=== PATIENT | female | born 1990 | race Two or more races ===

== ENCOUNTER 2017-08-17 15:56 | Inpatient (IN) | payer MEDICAID ==
[~2017-08-17] VITALS: Ht 165.1 cm; Wt 47.6 kg
[2017-08-17 16:10] VITALS: BP 83/60
[2017-08-17 17:00] VITALS: BP 96/73
--- NOTE | 2017-08-17 17:17 | Emergency Room Report ---
History of Present Illness General Chief Complaint: Abnormal Labs Source: Patient Present Illness HPI Patient has a history of diabetes. Patient has insulin-dependent diabetes. Patient states that she was doing fine today. She went to lunch and subsequently began having nausea vomiting and diarrhea. She fell her sugar go low and she became very weak. EMS arrived and checked her sugar and noted that her sugar was in the 60s. Patient denies any fever. She denies any chest pain or shortness of breath. Patient was given one amp of D50 and symptoms improved significantly. Patient came here for further evaluation by EMS. On arrival patient sugar was about 200. Patient states that she feels better now but is a little nauseous. No other complaints are noted. Symptoms noted to be moderate to severe. In addition patient also has a history of celiac disease. She is recently delivered a healthy baby as well.No other modifying factors. No other associated signs and symptoms. No other complaints were noted. Allergies: Coded Allergies: No Known Allergies (Unverified , 08/17/17) Patient History Past Medical History: DM, other - celiac disease Past Surgical History: none Pertinent Family History: none Social History: Denies: smoking, alcohol use, drug use Reviewed Nursing Documentation: PMH: Agreed, PSxH: Agreed Nursing Documentation-PMH Past Medical History: No History, Except For Hx Diabetes: Yes Review of Systems All Other Systems: negative except mentioned in HPI Physical Exam Vital Signs Date Time Temp Pulse Resp B/P (MAP) Pulse Ox O2 Delivery O2 Flow Rate FiO2 08/17/17 15:51 98.2 66 19 83/65 96 Room Air Sp02 EP Interpretation: reviewed, normal General Appearance: normal inspection, alert, mild distress - weak Head: atraumatic Eyes: bilateral eye normal inspection ENT: normal ENT inspection, hearing grossly normal, normal voice Neck: normal inspection, full range of motion, supple, no bony tend Respiratory: normal inspection, lungs clear, normal breath sounds, no respiratory distress, no retraction, no wheezing Cardiovascular #1: regular rate, rhythm, no edema Gastrointestinal: normal inspection, normal bowel sounds, non tender, soft, no guarding, no hernia Genitourinary: no CVA tenderness Musculoskeletal: normal inspection, back normal, normal range of motion Neurologic: normal inspection, alert, responsive, speech normal Psychiatric: normal inspection, judgement/insight normal, mood/affect normal Skin: normal inspection, normal color, no rash Medical Decision Making Diagnostic Impression: Primary Impression: Pancreatitis Additional Impressions: Hypokalemia Hypoglycemia UTI (urinary tract infection) ER Course Patient presents emergency department today complaining of abdominal pain. Differential considerations include gastritis, pancreatitis, gastroenteritis, appendicitis just to name a few. Patient has a very complicated history including colitis and celiac disease. Patient also takes immunosuppressants. Patient currently is breast-feeding as well.Given the severity of the patient's presentation I felt this is a highly complex patient. This patient required extensive workup. Patient was noted to be hypoglycemic received one dose of glucose prior to arrival. Patient glucose has been stable while she is here. Patient was given fluids. Patient laboratory workup shows evidence of pancreatitis. Patient's CAT scan however was negative for appendicitis. Patient was given potassium to improve her hypokalemia which was noted on blood tests. Given patient's presentation patient require admission. Case was discussed with Dr. Tony Ricketts. Patient will be admitted to telemetry for further treatment. Labs Test 08/17/17 16:45 08/17/17 18:24 08/17/17 18:25 White Blood Count 20.3 K/UL (4.8-10.8) Red Blood Count 6.67 M/UL (4.20-5.40) Hemoglobin 18.9 G/DL (12.0-16.0) Hematocrit 58.5 % (37.0-47.0) Mean Corpuscular Volume 88 FL (80-99) Mean Corpuscular Hemoglobin 28.3 PG (27.0-31.0) Mean Corpuscular Hemoglobin Concent 32.3 G/DL (32.0-36.0) Red Cell Distribution Width 12.7 % (11.6-14.8) Platelet Count 417 K/UL (150-450) Mean Platelet Volume 5.6 FL (6.5-10.1) Neutrophils (%) (Auto) 83.0 % (45.0-75.0) Lymphocytes (%) (Auto) 9.1 % (20.0-45.0) Monocytes (%) (Auto) 5.4 % (1.0-10.0) Eosinophils (%) (Auto) 1.5 % (0.0-3.0) Basophils (%) (Auto) 1.0 % (0.0-2.0) Urine Color Yellow Urine Appearance Very cloudy Urine pH 6 (4.5-8.0) Urine Specific [place] 1.015 (1.005-1.035) Urine Protein 3+ (NEGATIVE) Urine Glucose (UA) Negative (NEGATIVE) Urine Ketones 1+ (NEGATIVE) Urine Occult Blood 4+ (NEGATIVE) Urine Nitrite Positive (NEGATIVE) Urine Bilirubin Negative (NEGATIVE) Urine Urobilinogen Normal MG/DL (0.0-1.0) Urine Leukocyte Esterase 3+ (NEGATIVE) Urine RBC 0-2 /HPF (0 - 2) Urine WBC Tntc /HPF (0 - 2) Urine Squamous Epithelial Cells Many /LPF (NONE/OCC) Urine Bacteria Many /HPF (NONE) Urine HCG, Qualitative Negative Prothrombin Time 11.2 SEC (9.30-11.50) Prothromb Time International Ratio 1.1 (0.9-1.1) Activated Partial Thromboplast Time 28 SEC (23-33) Sodium Level 138 MMOL/L (136-145) Potassium Level 2.2 MMOL/L (3.5-5.1) Chloride Level 98 MMOL/L (98-107) Carbon Dioxide Level 23 MMOL/L (21-32) Anion Gap 18 mmol/L (5-15) Blood Urea Nitrogen 23 mg/dL (7-18) Creatinine 1.0 MG/DL (0.55-1.30) Estimat Glomerular Filtration Rate > 60 mL/min (>60) Glucose Level 205 MG/DL (74-106) Calcium Level 9.5 MG/DL (8.5-10.1) Total Bilirubin 1.4 MG/DL (0.2-1.0) Direct Bilirubin 0.2 MG/DL (0.0-0.3) Aspartate Amino Transf (AST/SGOT) 31 U/L (15-37) Alanine Aminotransferase (ALT/SGPT) 48 U/L (12-78) Alkaline Phosphatase 131 U/L (46-116) Total Protein 8.3 G/DL (6.4-8.2) Albumin 3.7 G/DL (3.4-5.0) Globulin 4.6 g/dL Albumin/Globulin Ratio 0.8 (1.0-2.7) Lipase 3201 U/L (73-393) Rhythm Strip Diag. Results EP Interpretation: yes Rate: 90s Rhythm: NSR, no PVC's, no ectopy Last Vital Signs Date Time Temp Pulse Resp B/P (MAP) Pulse Ox O2 Delivery O2 Flow Rate FiO2 08/17/17 15:51 98.2 66 19 83/65 96 Room Air Status: improved Disposition: ADMITTED INPATIENT Condition: Serious JUDY DANIELS M.D. Aug 17, 2017 17:17
[2017-08-17 17:36] LABS: MEAN CORPUSCULAR HEMOGLOBIN 28.3 PG (27.0-31.0); MEAN CORPUSCULAR HGB CONC 32.3 G/DL (32.0-36.0); MEAN CORPUSCULAR VOLUME 88 FL (80-99); MEAN PLATELET VOLUME 5.6 FL (6.5-10.1); PLATELET COUNT 417 K/UL (150-450); RED BLOOD COUNT 6.67 M/UL (4.20-5.40); RED CELL DISTRIBUTION WIDTH 12.7 % (11.6-14.8); WHITE BLOOD COUNT 20.3 K/UL (4.8-10.8)
[2017-08-17 17:40] LABS: EOSINOPHILS % (AUTO) 1.5 % (0.0-3.0); LYMPHOCYTES % (AUTO) 9.1 % (20.0-45.0); MONOCYTES % (AUTO) 5.4 % (1.0-10.0)
[2017-08-17 18:00] VITALS: BP 94/70
[2017-08-17] MEDS ORDERED: HUMALOG100 UNIT/4 SUBQ (18:23)
[2017-08-17] MEDS ORDERED: LEVEMIR100 UNIT/1 SUBQ (18:23)
[2017-08-17] MEDS ORDERED: POTASSIUM CHLO20 ME2 ORAL (18:23)
[2017-08-17] MEDS ORDERED: UCERIS9 MG PO (18:23)
[2017-08-17 18:57] LABS: INR 1.1 (0.9-1.1); PROTHROMBIN TIME 11.2 SEC (9.30-11.50)
[2017-08-17 19:01] LABS: APPEARANCE,URINE VERY CLOUDY; KETONES,URINE 1+ (NEGATIVE); LEUKOCYTE ESTERASE ,URINE 3+ (NEGATIVE); NITRITE,URINE POSITIVE (NEGATIVE); PH,URINE 6 (4.5-8.0); PROTEIN,URINE 3+ (NEGATIVE); UROBILINOGEN,URINE NORMAL MG/DL (0.0-1.0)
[2017-08-17 19:11] LABS: ALANINE AMINOTRANSFERASE 48 U/L (12-78); ALBUMIN/GLOBULIN RATIO 0.8 (1.0-2.7); ANION GAP 18 mmol/L (5-15); ASPARTATE AMINO TRANSFERASE 31 U/L (15-37); CALCIUM 9.5 MG/DL (8.5-10.1); CARBON DIOXIDE 23 MMOL/L (21-32); CHLORIDE 98 MMOL/L (98-107); GLOMERULAR FILTRATION RATE > 60 mL/min (>60); LIPASE 3201 U/L (73-393); SODIUM 138 MMOL/L (136-145); TOTAL PROTEIN 8.3 G/DL (6.4-8.2)
[2017-08-17 19:12] LABS: POTASSIUM 2.2 MMOL/L (3.5-5.1)
[2017-08-17 19:14] LABS: BACTERIA,URINE MANY /HPF; RBC,URINE 0-2 /HPF (0 - 2); SQUAMOUS EPITHELIAL CELL,UR MANY /LPF (NONE/OCC); WBC,URINE TNTC /HPF (0 - 2)
[2017-08-17] MEDS ORDERED: cefTRIAXone 1 GM in NS 55 ML IVPB ONE (19:15)
[2017-08-17] MEDS ORDERED: NS 55 ML IV ONE (19:20)
[2017-08-17] MEDS ORDERED: Tubing IV Cassette IV ONE (19:20)
[2017-08-17 19:30] VITALS: BP 93/66
[2017-08-17 19:31] LABS: BILIRUBIN,DIRECT 0.2 MG/DL (0.0-0.3)
[2017-08-17 21:00] VITALS: BP 91/66
[2017-08-17 22:00] VITALS: BP 109/58
[2017-08-17] MEDS ORDERED: Morphine Sulfate 4mg/ml Inj IVP PRN (22:30)
[2017-08-17] MEDS ORDERED: Morphine Sulfate 2mg/ml Inj IVP PRN (22:30)
[2017-08-17] MEDS: NovoLOG Insulin Flexpen SUBQ SCH (23:54)
[2017-08-17] MEDS: NS w/KCl 20mEq 1,000 ML IV SCH (23:55)
[2017-08-18 04:00] VITALS: BP 91/58
[2017-08-18] MEDS: NovoLOG Insulin Flexpen SUBQ SCH ×2 (05:55→14:15)
[2017-08-18] MEDS: Heparin 5000 units/ml inj SUBQ SCH ×2 (05:55→14:00)
[2017-08-18 07:51] LABS: BASOPHILS % (AUTO) 0.7 % (0.0-2.0); EOSINOPHILS % (AUTO) 7.3 % (0.0-3.0); LYMPHOCYTES % (AUTO) 34.5 % (20.0-45.0); MEAN CORPUSCULAR HEMOGLOBIN 29.5 PG (27.0-31.0); MEAN CORPUSCULAR HGB CONC 33.8 G/DL (32.0-36.0); MEAN CORPUSCULAR VOLUME 87 FL (80-99); MONOCYTES % (AUTO) 12.4 % (1.0-10.0); NEUTROPHILS % (AUTO) 45.2 % (45.0-75.0); PLATELET COUNT 372 K/UL (150-450); RED BLOOD COUNT 5.54 M/UL (4.20-5.40); WHITE BLOOD COUNT 6.4 K/UL (4.8-10.8)
[2017-08-18 08:00] VITALS: BP 100/62
[2017-08-18 08:30] LABS: ALANINE AMINOTRANSFERASE 39 U/L (12-78); ALBUMIN/GLOBULIN RATIO 0.8 (1.0-2.7); AMYLASE 54 U/L (25-115); ANION GAP 16 mmol/L (5-15); ASPARTATE AMINO TRANSFERASE 24 U/L (15-37); CARBON DIOXIDE 20 MMOL/L (21-32); CHLORIDE 104 MMOL/L (98-107); CREATININE 0.9 MG/DL (0.55-1.30); GLOMERULAR FILTRATION RATE > 60 mL/min (>60); LIPASE 221 U/L (73-393); PHOSPHORUS 3.8 MG/DL (2.5-4.9); SODIUM 140 MMOL/L (136-145); TOTAL PROTEIN 6.8 G/DL (6.4-8.2)
[2017-08-18] MEDS: NS w/KCl 20mEq 1,000 ML IV SCH (08:30)
[2017-08-18 08:40] LABS: POTASSIUM 2.5 MMOL/L (3.5-5.1)
[2017-08-18 08:41] LABS: BILIRUBIN,DIRECT 0.2 MG/DL (0.0-0.3)
--- NOTE | 2017-08-18 09:08 | Diagnostic Imaging Report ---
Indication: PAIN Technique: Spiral acquisitions obtained through the abdomen and pelvis. No oral contrast utilized, per emergency room physician request No IV contrast utilized, per referring physician request.. Multiplanar reconstructions were generated. Total dose length product 618 mGycm. CTDIvol(s) 12 mGy. Dose reduction achieved using automated exposure control Comparison: None Findings: Lack of enteric contrast limits assessment of the GI tract. The rectum is distended by fluid. Fluid is also seen throughout the colon. The small bowel is diffusely mildly dilated, and considerable fluid is seen within the small bowel. No free or loculated intraperitoneal air or fluid. The appendix is not definitely visualized, but no definite findings to suggest acute appendicitis are evident. No evidence of diverticulosis or diverticulitis. The distal esophagus, stomach, duodenum are unremarkable. Multiple retained tablets are seen within the stomach and duodenum and proximal small bowel. There is a small fat-containing umbilical hernia. Lack of IV contrast limits assessment of solid organs. The liver demonstrates some focal fatty change in the usual location adjacent to the falciform ligament, is otherwise unremarkable. The gallbladder and bile ducts are unremarkable. The pancreas, spleen, adrenals, kidneys are unremarkable. No pelvic mass or adenopathy. There is a section scar. The included lung bases are clear. The bones are unremarkable. Impression: Prominent fluid-filled colon and small bowel, could indicate enteritis. Correlate with clinical findings No definite acute process otherwise Other findings as noted, including focal hepatic fatty change, evidence of prior section, small fat-containing umbilical hernia This agrees with the preliminary interpretation provided overnight by [facility] teleradiology service. The CT scanner at [facility] is accredited by the [employer] and the scans are performed using protocols designed to limit radiation exposure to as low as reasonably achievable to attain images of sufficient resolution adequate for diagnostic evaluation.
[2017-08-18 12:00] VITALS: BP 114/57
[2017-08-18] MEDS ORDERED: Tubing IV Secondary IV ONE (14:10)
--- NOTE | 2017-08-18 15:00 | Consultation ---
History of Present Illness General Date patient seen: Aug 18, 2017 Chief Complaint: Abnormal Labs Present Illness HPI 26 year old female with hx of Celiac disease, DM a history of diabetes presented to ER with nausea vomiting and diarrhea. She fell her sugar go low and she became very weak. EMS arrived and checked her sugar and noted that her sugar was in the 60s. Patient was given one amp of D50 and symptoms improved significantly. On arrival patient sugar was about 200. Patient states that she feels better now but is a little nauseous. No other complaints are noted. She was found to be hypokalemic with WBC of 20K. She was admitted to telemetry last night. Her WBC meanwhile went down and she remained afebrile. She wants to sign AMA and leave now. Allergies: Coded Allergies: No Known Allergies (Unverified , 08/17/17) Medication History Scheduled Budesonide (Uceris), 9 MG PO DAILY, (Reported) Insulin Detemir (Levemir), 0 SUBQ BEDTIME, (Reported) Potassium Chloride (Potassium Chloride), 20 MEQ ORAL DAILY, (Reported) Miscellaneous Medications Insulin Lispro (Humalog), 0 SUBQ, (Reported) Patient History Healthcare decision maker Resuscitation status Full Code Advanced Directive on File No Review of Systems Constitutional: Reports: malaise, weakness All Other Systems: negative except mentioned in HPI Physical Exam General Appearance: WD/WN Lines, tubes and drains: peripheral HEENT: normocephalic, atraumatic Neck: non-tender, normal alignment Respiratory/Chest: chest wall non-tender, lungs clear Breasts: no masses Cardiovascular/Chest: normal peripheral pulses, regular rhythm Abdomen: normal bowel sounds Genitourinary/Rectal: normal genital exam Extremities: normal range of motion Last 24 Hour Vital Signs Date Time Temp Pulse Resp B/P (MAP) Pulse Ox O2 Delivery O2 Flow Rate FiO2 08/18/17 12:00 100 08/18/17 12:00 97.7 91 19 114/57 96 Room Air 08/18/17 08:00 100 08/18/17 08:00 97.2 97 20 100/62 98 Room Air 08/18/17 04:00 124 08/18/17 04:00 97.1 92 20 91/58 97 Room Air 08/18/17 00:00 86 08/17/17 22:00 99.7 100 20 109/58 97 Room Air 08/17/17 21:50 97.0 96 12 98 Room Air 08/17/17 21:00 96 12 98 Room Air 08/17/17 19:30 102 14 93/66 97 Room Air 08/17/17 18:00 95 21 94/70 98 Room Air 08/17/17 17:00 95 17 96/73 98 Room Air 08/17/17 16:10 97.0 93 20 83/60 99 Room Air 08/17/17 15:51 98.2 66 19 83/65 96 Room Air Laboratory Tests Test 08/17/17 16:45 08/17/17 18:24 08/17/17 18:25 08/18/17 04:55 White Blood Count 20.3 K/UL (4.8-10.8) H 6.4 K/UL (4.8-10.8) # Red Blood Count 6.67 M/UL (4.20-5.40) H 5.54 M/UL (4.20-5.40) H Hemoglobin 18.9 G/DL (12.0-16.0) *H 16.4 G/DL (12.0-16.0) H Hematocrit 58.5 % (37.0-47.0) H 48.5 % (37.0-47.0) H Mean Corpuscular Volume 88 FL (80-99) 87 FL (80-99) Mean Corpuscular Hemoglobin 28.3 PG (27.0-31.0) 29.5 PG (27.0-31.0) Mean Corpuscular Hemoglobin Concent 32.3 G/DL (32.0-36.0) 33.8 G/DL (32.0-36.0) Red Cell Distribution Width 12.7 % (11.6-14.8) 13.0 % (11.6-14.8) Platelet Count 417 K/UL (150-450) 372 K/UL (150-450) Mean Platelet Volume 5.6 FL (6.5-10.1) L 6.0 FL (6.5-10.1) L Neutrophils (%) (Auto) 83.0 % (45.0-75.0) H 45.2 % (45.0-75.0) Lymphocytes (%) (Auto) 9.1 % (20.0-45.0) L 34.5 % (20.0-45.0) Monocytes (%) (Auto) 5.4 % (1.0-10.0) 12.4 % (1.0-10.0) H Eosinophils (%) (Auto) 1.5 % (0.0-3.0) 7.3 % (0.0-3.0) H Basophils (%) (Auto) 1.0 % (0.0-2.0) 0.7 % (0.0-2.0) Urine Color Yellow Urine Appearance Very cloudy Urine pH 6 (4.5-8.0) Urine Specific [place] 1.015 (1.005-1.035) Urine Protein 3+ (NEGATIVE) H Urine Glucose (UA) Negative (NEGATIVE) Urine Ketones 1+ (NEGATIVE) H Urine Occult Blood 4+ (NEGATIVE) H Urine Nitrite Positive (NEGATIVE) H Urine Bilirubin Negative (NEGATIVE) Urine Urobilinogen Normal MG/DL (0.0-1.0) Urine Leukocyte Esterase 3+ (NEGATIVE) H Urine RBC 0-2 /HPF (0 - 2) Urine WBC Tntc /HPF (0 - 2) H Urine Squamous Epithelial Cells Many /LPF (NONE/OCC) H Urine Bacteria Many /HPF (NONE) H Urine HCG, Qualitative Negative Prothrombin Time 11.2 SEC (9.30-11.50) Prothromb Time International Ratio 1.1 (0.9-1.1) Activated Partial Thromboplast Time 28 SEC (23-33) Sodium Level 138 MMOL/L (136-145) 140 MMOL/L (136-145) Potassium Level 2.2 MMOL/L (3.5-5.1) *L 2.5 MMOL/L (3.5-5.1) *L Chloride Level 98 MMOL/L (98-107) 104 MMOL/L (98-107) Carbon Dioxide Level 23 MMOL/L (21-32) 20 MMOL/L (21-32) L Anion Gap 18 mmol/L (5-15) H 16 mmol/L (5-15) H Blood Urea Nitrogen 23 mg/dL (7-18) H 20 mg/dL (7-18) H Creatinine 1.0 MG/DL (0.55-1.30) 0.9 MG/DL (0.55-1.30) Estimat Glomerular Filtration Rate > 60 mL/min (>60) > 60 mL/min (>60) Glucose Level 205 MG/DL (74-106) H 160 MG/DL (74-106) H Calcium Level 9.5 MG/DL (8.5-10.1) 9.0 MG/DL (8.5-10.1) Total Bilirubin 1.4 MG/DL (0.2-1.0) H 1.7 MG/DL (0.2-1.0) H Direct Bilirubin 0.2 MG/DL (0.0-0.3) 0.2 MG/DL (0.0-0.3) Aspartate Amino Transf (AST/SGOT) 31 U/L (15-37) 24 U/L (15-37) Alanine Aminotransferase (ALT/SGPT) 48 U/L (12-78) 39 U/L (12-78) Alkaline Phosphatase 131 U/L (46-116) H 109 U/L (46-116) Total Protein 8.3 G/DL (6.4-8.2) H 6.8 G/DL (6.4-8.2) Albumin 3.7 G/DL (3.4-5.0) 3.0 G/DL (3.4-5.0) L Globulin 4.6 g/dL 3.8 g/dL Albumin/Globulin Ratio 0.8 (1.0-2.7) L 0.8 (1.0-2.7) L Lipase 3201 U/L (73-393) H 221 U/L (73-393) Phosphorus Level 3.8 MG/DL (2.5-4.9) Magnesium Level 2.0 MG/DL (1.8-2.4) Amylase Level 54 U/L (25-115) Microbiology Date/Time Source Procedure Growth Status 08/17/17 18:24 Urine,Clean Catch Urine Culture - Preliminary Gram Negative Bacillus 1 Resulted Height (Feet): 5 Height (Inches): 5.00 Weight (Pounds): 105 Medications Current Medications Medications (Trade) Dose Ordered Sig/Steffanie Route PRN Reason Start Time Stop Time Status Last Admin Dose Admin Ceftriaxone Sodium 1 gm/ Dextrose 55 ml @ 110 mls/hr Q24H IVPB 08/18/17 20:00 08/25/17 19:59 Dextrose (Dextrose 50%) STAT PRN IV Hypoglycemia 08/17/17 22:30 09/16/17 22:29 08/18/17 01:49 Heparin Sodium (Porcine) (Heparin 5000 units/ml) 5,000 units EVERY 8 HOURS SUBQ 08/18/17 06:00 09/17/17 05:59 08/18/17 05:55 Insulin Aspart (NovoLOG) EVERY 6 HOURS SUBQ 08/18/17 00:00 09/17/17 00:00 08/18/17 14:15 Metronidazole 100 ml @ 100 mls/hr Q8HR IVPB 08/18/17 06:00 08/25/17 05:59 08/18/17 05:50 Morphine Sulfate (Morphine Sulfate) 2 mg EVERY 4 HOURS PRN IVP Moderate Breakthru Pain (5-7) 08/17/17 22:30 08/24/17 22:29 Morphine Sulfate (Morphine Sulfate) 4 mg EVERY 4 HOURS PRN IVP Severe Pain (Pain Scale 7-10) 08/17/17 22:30 08/24/17 22:29 Ondansetron HCl (Zofran) 4 mg EVERY 4 HOURS PRN IVP Nausea & Vomiting 08/17/17 22:30 09/16/17 22:29 Sodium Chloride 1,000 ml @ 100 mls/hr Q10H IV 08/17/17 22:30 09/16/17 22:29 08/17/17 23:55 Assessment/Plan Problem List: (1) UTI (urinary tract infection) ICD Codes: N39.0 - Urinary tract infection, site not specified SNOMED: 86004237 (2) Hypoglycemia ICD Codes: E16.2 - Hypoglycemia, unspecified SNOMED: 984468450 (3) Hypokalemia ICD Codes: E87.6 - Hypokalemia SNOMED: 17336582 Assessment/Plan pts wbc decreased pt adamant about leaving right now I give her cipro for 5 days and advised her to come back if she started to feel fever, dysuria etc. ARLYN TRIPP Aug 18, 2017 15:00
[2017-08-18] MEDS ORDERED: CIPRO500 MG/51 PO (15:02)
[2017-08-18] MEDS ORDERED: cefTRIAXone 1gm/D5W 55ml IVPB SCH ×2 (20:00)
--- NOTE | 2017-08-20 18:43 | Cardiology Report ---
APPROVED REPORT EKG Measurement Heart [id number] Normal sinus rhythm Rightward axis Borderline ECG
--- NOTE | 2017-08-21 08:13 | Discharge Summary ---
Discharge Summary Hospital Course Date of Admission Aug 17, 2017 at 20:49 Date of Discharge Aug 18, 2017 at 15:10 Admitting Diagnosis ABDOMINAL PAIN HPI Toni Tirado is a 26 year old female who was admitted on Aug 17, 2017 at 20: 49 for Abdominal Pain Hospital Course dc summary #[id number] Discharge Medications New Medications: Ciprofloxacin (Cipro) 500 Mg/5 Ml Perla.mc.rec 500 MG PO BID for 5 Days, CAP Continued Medications: Budesonide (Uceris) 9 Mg Tabdr...er 9 MG PO DAILY, TAB Insulin Detemir (Levemir) 100 Unit/1 Ml Vial 0 SUBQ BEDTIME, VIAL Insulin Lispro (Humalog) 100 Unit/1 Ml Cartridge 0 SUBQ, #1 UNITS 0 Refills Discharge Discharge Disposition Patient was discharged to Home (01) Discharge Diagnoses: Discharge Instructions Discharge Instructions Special Instructions I have been assigned to complete a D/C Summary on this account. I was not involved in the patient management Antionette Carcamo NP ([place]) Aug 21, 2017 08:13
--- NOTE | 2017-08-22 01:30 | Discharge Summary 2 SIG ---
DATE OF ADMISSION: 08/17/2017 DATE OF DISCHARGE: 08/18/2017 REASON FOR ADMISSION: 26-year-old female with a history of celiac disease and diabetes, presented to emergency department with nausea, vomiting, and diarrhea. She felt that her sugar was low while she was having lunch. Paramedics were called. Upon checking, her sugar was in the 60. The patient received one ampule of D50. Symptoms improved significantly. The patient was taken to emergency room for further evaluation. Upon arrival, sugar was about 200. The patient stated that she felt better, but was a little nauseous. She was hypokalemic with potassium- 2.2. Urinalysis revealed evidence of UTI. WBC -20.3. Lipase was 3201. The patient was admitted to telemetry for further management. CT abdomen and pelvis revealed no evidence of appendicitis or bowel obstruction. Solid organs were not well visualized due to the lack of IV contrast. HOSPITAL STAY: The patient was admitted. The patient was started on IV fluids and empiric antibiotics for UTI. Potassium was replaced. DVT prophylaxis provided. Blood sugar was managed with sensitive scale of insulin. Pain management was provided. Antiemetic provided as needed. Next day, leukocytosis resolved, WBC down to 6.4. Lipase down to normal -221. Amylase -normal. Blood sugar was stable. The patient was adamant to go home. Urine test was negative. The patient was given prescription for Cipro and was advised to come back if she started to feel fever,chills, dysuria, and abdominal pain. Urine culture back at the time of dictation. Urine culture grew E. coli , sensitive to Cipro. Due to the rapid and unexpected improvement in the patient's condition, the patient was discharged in one day. FINAL DIAGNOSES: 1. Urinary tract infection. 2. Hypoglycemia. 3. Hypokalemia. 4. Possible pancreatitis, resolved. DISCHARGE MEDICATIONS: See medication reconciliation list. DISCHARGE INSTRUCTIONS: The patient was discharged home. Follow up with the primary medical doctor. The patient was advised to come back if fever, nausea, vomiting, or epigastric pain returns. Tony Ricketts M.D. Antionette Carcamo N.P. ([place]) DR: Kyle JOB#: [id number] CC: PING
--- NOTE | 2017-08-31 21:56 | History and Physical ---
History of Present Illness General Date patient seen: Aug 18, 2017 Reason for Hospitalization: Abnormal Labs Present Illness HPI 26 year old female with hx of Celiac disease, DM a history of diabetes presented to ER with nausea vomiting and diarrhea. She fell her sugar go low and she became very weak. EMS arrived and checked her sugar and noted that her sugar was in the 60s. Patient was given one amp of D50 and symptoms improved significantly. On arrival patient sugar was about 200. Patient states that she feels better now but is a little nauseous. No other complaints are noted. She was found to be hypokalemic with WBC of 20K. She was admitted to telemetry last night. Her WBC meanwhile went down and she remained afebrile. She wants to sign AMA and leave now. Allergies: Coded Allergies: No Known Allergies (Unverified , 08/17/17) Medication History Scheduled Budesonide (Uceris), 9 MG PO DAILY, (Reported) Ciprofloxacin (Cipro), 500 MG PO BID Insulin Detemir (Levemir), 0 SUBQ BEDTIME, (Reported) Potassium Chloride (Potassium Chloride), 20 MEQ ORAL DAILY, (Reported) Miscellaneous Medications Insulin Lispro (Humalog), 0 SUBQ, (Reported) Patient History Healthcare decision maker Resuscitation status Full Code Advanced Directive on File No Review of Systems All Other Systems: negative except mentioned in HPI Physical Exam General Appearance: WD/WN HEENT: normocephalic Neck: normal alignment Respiratory/Chest: chest wall non-tender Breasts: no masses Abdomen: non tender Height (Feet): 5 Height (Inches): 5.00 Weight (Pounds): 105 Assessment/Plan Problem List: (1) UTI (urinary tract infection) ICD Codes: N39.0 - Urinary tract infection, site not specified SNOMED: 11723988 (2) Hypoglycemia ICD Codes: E16.2 - Hypoglycemia, unspecified SNOMED: 688105086 (3) Hypokalemia ICD Codes: E87.6 - Hypokalemia SNOMED: 80723729 Assessment/Plan pts wbc decreased pt adamant about leaving right now I give her cipro for 5 days and advised her to come back if she started to feel fever, dysuria etc. ARLYN TRIPP Aug 31, 2017 21:56
== END 2017-08-18 15:10 | disposition home or self-care (01) | DRG 637 ==
LOC: EDBD 15:56 → EDBEDREQSVC 19:15 → EMR 19:52 → 2E 20:49 → EDBEDREQ 21:05
DX: E11.649 Type 2 diabetes mellitus with hypoglycemia without coma (principal); K85.90 Acute pancreatitis without necrosis or infection, unspecified; N39.0 Urinary tract infection, site not specified; E87.6 Hypokalemia; K90.0 Celiac disease; Z79.4 Long term (current) use of insulin; B96.20 Unspecified Escherichia coli [E. coli] as the cause of diseases classified elsewhere
CPT/HCPCS: 36415; 74176; 80053; 81003; 81025; 82150; 82248; 82962; 83690; 83735; 84100; 85025; 85610; 85730; 87086; 87181; 93005; 99285; J1815; J2405; J8499